=== PATIENT | female | born 1975 | race African-American/Black ===

== ENCOUNTER 2022-09-27 11:00 | Emergency (ER) | payer MEDICAID ==
[~2022-09-27] VITALS: Ht 172.7 cm; Wt 92.0 kg
[2022-09-27 11:03] VITALS: BP 139/70
== END 2022-09-27 14:58 | disposition left against medical advice (07) ==
LOC: ER 11:00
DX: Z53.21 Procedure and treatment not carried out due to patient leaving prior to being seen by health care provider (principal)
CPT/HCPCS: 99281

== ENCOUNTER 2023-12-24 07:17 | Emergency (ER) | payer MEDICAID ==
[~2023-12-24] VITALS: Ht 170.2 cm; Wt 68.0 kg
[2023-12-24 07:25] VITALS: BP 176/75; RESP 18; TEMP 97.9; O2SAT 100
[2023-12-24 07:28] VITALS: PULSE 60
== END 2023-12-24 07:30 | disposition home or self-care (01) ==
LOC: ER 07:17
DX: M25.532 Pain in left wrist (principal); Z98.890 Other specified postprocedural states
CPT/HCPCS: 73110; 99283